=== PATIENT | female | born 1950 | race Caucasian/White ===

== ENCOUNTER 2016-08-29 10:35 | Inpatient (IN) | payer MEDICARE, OTHER ==
[2016-08-25 15:06] LABS: BASOPHILS 0.2 %; BASOPHILS ABSOLUTE 0.03 10/3/uL (0.0-0.16); EOSINOPHILS 3.1 %; EOSINOPHILS ABSOLUTE 0.45 10/3/uL (0.0-0.53); IMMATURE GRANULOCYTES 0.2 %; IMMATURE GRANULOCYTES ABSOLUTE 0.03 10/3/uL (0.0-0.11); LYMPHOCYTES 20.8 %; LYMPHOCYTES ABSOLUTE 3.06 10/3/uL (0.67-4.30); MEAN CORPUS HGB CONC 33.1 g/dL (32.0-36.0); MEAN CORPUSCULAR HEMOGLOB 30.6 pg (26.0-34.0); MEAN PLATELET VOLUME 8.4 fL (9.2-13.0); MONOCYTES 6.3 %; MONOCYTES ABSOLUTE 0.93 10/3/uL (0.21-1.20); NEUTROPHILS 69.4 %; NEUTROPHILS ABSOLUTE 10.23 10/3/uL (2.02-8.40); PLATELET COUNT 303 10/3/uL (150-400); RBC DISTRIBUTION WIDTH 14.4 % (12.0-16.0); RED CELL COUNT 3.99 10/6/uL (4.0-5.6)
[2016-08-25 15:12] LABS: HEMATOCRIT 36.9 % (36.0-48.0); HEMOGLOBIN 12.2 g/dL (12.0-16.0); MANUAL DIFF NO %; MEAN CORPUSCULAR VOLUME 92.5 fL (80-100); WHITE BLOOD CELLS 14.7 10/3/uL (4.5-10.5)
[2016-08-25 15:17] LABS: INTERNATIONAL NORMAL RATI 1.1 UNITS (-); PROTIME (NOT ORD) 13.9 SEC (12.0-14.5)
[2016-08-25 15:21] LABS: A/G RATIO 0.6 (0.7-1.9); ALBUMIN 3.2 G/DL (3.5-5.0); ALKALINE PHOSPHATASE 102 U/L (45-117); BUN (BLOOD UREA NITROGEN) 17 MG/DL (6-23); CALCIUM, SERUM 8.8 MG/DL (8.5-10.4); CHLORIDE, SERUM 101 MMOL/L (96-112); CO2 (CARBON DIOXIDE) 31 MMOL/L (24-34); CREATININE 0.91 MG/DL (0.55-1.02); GFR AFRICAN AMERICAN 77 ML/MIN (>=60); GFR NON AFRICAN AMERICAN 66 ML/MIN (>=60); GLUCOSE, SERUM 97 MG/DL (60-99); POTASSIUM, SERUM 4.8 MMOL/L (3.5-5.3); SGOT(AST) 25 U/L (5-40); SGPT(ALT) 27 U/L (5-65); SODIUM, SERUM 135 MMOL/L (135-148); TOTAL BILIRUBIN 0.5 MG/DL (0-1.2); TOTAL PROTEIN 8.2 G/DL (6.0-8.5)
--- NOTE | ~2016-08-29 | OP ---
Record Of Operation [facility] [place] [address] [place]. [address] NAME: CHER BAPTISTE : 50 STATUS : ADM IN PAT#: [id number] AGE: 65 ADM/REG DATE : 08/29/16 MR#: [id number] REPORT SERV DATE: 08/30/16 DICTATED BY: DUY COTTER JR. DATE: 08/29/16 REPORT STATUS : Draft TRANSCRIBED BY: MODDeo DATE: 08/29/16 DATE OF PROCEDURE: 08/29/2016 PREOPERATIVE DIAGNOSES: Interstitial lung disease, persistent cough, dyspnea, increased body mass index, hypothyroidism. POSTOPERATIVE DIAGNOSES: Interstitial lung disease, persistent cough, dyspnea, increased body mass index, hypothyroidism. Pathology and cultures pending. NAME OF OPERATION: Bronchoscopy, right thoracoscopy with wedge excision, right middle lobe, for diagnosis; mediastinal lymph node sampling, shauna station #9; intercostal nerve block. RESIDENT SURGEON: Dr. Luis Angel Martinez. RESERVATION CLERK: Everardo Samaniego. ANESTHESIA: General endotracheal. FINDINGS: The patient was noted to have grossly abnormal lung tissue. Right middle lobe had a segment that was visibly abnormal, transitioning to more normal lung tissue. This area was wedged out. There were other segments of very normal lung tissue. We did not do more biopsies just trying to spare her lung tissue. On the segment of the middle lobe that we removed, pathologist felt he had a good transition zone as well as adequate material to perform a diagnosis. Portion was sent for cultures. Her mediastinal lymph nodes were enlarged. A #9 lymph node was sent for pathology. Final pathology is pending. DETAILS OF OPERATION: After adequate general anesthesia, the patient was intubated. Bronchoscopy was performed noting no endobronchial lesions. A left-sided double-lumen endotracheal tube was then placed. The patient was then positioned in the left lateral decubitus position. The right chest was then prepped and draped in routine sterile fashion. A small incision was made overlying the lower intercostal space. A separate anterior trocar incision was also made. Through these two incision sites, above findings were noted. Lung tissue was explored noting the above findings. We took a section of the middle lobe because of the transition between abnormal and normal tissue. Multiple firings of THERESA stapler with tissue reinforcements were utilized. We were able to remove dissection through the inferior trocar site. Mediastinal nodes were then explored. We removed one of these inferior pulmonary ligament lymph nodes. This was also sent to pathology. Confirmation of adequate tissue was obtained. We did not remove more lung tissue given her obvious need for every bit of her lung tissue. It did not look like sarcoidosis or something simple. Adequate hemostasis was obtained. An intercostal nerve block was performed. A 20-Czech chest tube was placed. The lung was reinflated. The trocar sites were closed with running Vicryl sutures. Skin was closed with running monofilament suture. A Dermabond dressing was applied and the procedure was terminated at this point. The patient tolerated the procedure well and taken back to recovery room in stable condition. Record Of Operation [place] [id number] [facility] [place]. [address] NAME: CHER BAPTISTE : 50 STATUS : ADM IN [facility]#: [id number] AGE: 65 ADM/REG DATE : 08/29/16 MR#: [id number] REPORT SERV DATE: 08/30/16 DICTATED BY: DUY COTTER JR. DATE: 08/29/16 REPORT STATUS : Draft TRANSCRIBED BY: QUETA DATE: 08/29/16 /QUETA Duy Cotter Jr., M.D. / [id number] CC: Julio Barros Jr., NP Daniel Smith, M.D.
[~2016-08-29 10:35] MED LIST: COZAAR100 MG PO; LEVOTHYROXIN88 MCG PO; LEXAPRO10 PO; SEV VITAMINS PO; SINGULAIR1 PO; SYMBICORT 80/4.1 INH INH; [UNRECOGNIZED DRUG - OTHER] PO
[2016-08-30 05:37] LABS: BASOPHILS 0.1 %; BASOPHILS ABSOLUTE 0.01 10/3/uL (0.0-0.16); EOSINOPHILS 0.1 %; EOSINOPHILS ABSOLUTE 0.01 10/3/uL (0.0-0.53); HEMATOCRIT 33.6 % (36.0-48.0); IMMATURE GRANULOCYTES 0.2 %; IMMATURE GRANULOCYTES ABSOLUTE 0.02 10/3/uL (0.0-0.11); LYMPHOCYTES 20.6 %; LYMPHOCYTES ABSOLUTE 2.23 10/3/uL (0.67-4.30); MEAN CORPUS HGB CONC 32.7 g/dL (32.0-36.0); MEAN CORPUSCULAR HEMOGLOB 30.9 pg (26.0-34.0); MEAN CORPUSCULAR VOLUME 94.4 fL (80-100); MEAN PLATELET VOLUME 8.5 fL (9.2-13.0); MONOCYTES 7.9 %; MONOCYTES ABSOLUTE 0.85 10/3/uL (0.21-1.20); NEUTROPHILS 71.1 %; PLATELET COUNT 266 10/3/uL (150-400); RBC DISTRIBUTION WIDTH 14.6 % (12.0-16.0); RED CELL COUNT 3.56 10/6/uL (4.0-5.6); WHITE BLOOD CELLS 10.8 10/3/uL (4.5-10.5)
[2016-08-30 05:38] LABS: MANUAL DIFF NO %
[2016-08-30 05:51] LABS: CALCIUM, SERUM 8.7 MG/DL (8.5-10.4); CHLORIDE, SERUM 100 MMOL/L (96-112); CREATININE 0.67 MG/DL (0.55-1.02); GFR AFRICAN AMERICAN 107 ML/MIN (>=60); GFR NON AFRICAN AMERICAN 92 ML/MIN (>=60); POTASSIUM, SERUM 4.9 MMOL/L (3.5-5.3); SODIUM, SERUM 131 MMOL/L (135-148)
[2016-08-30 05:56] LABS: BUN (BLOOD UREA NITROGEN) 11 MG/DL (6-23); CO2 (CARBON DIOXIDE) 25 MMOL/L (24-34); GLUCOSE, SERUM 267 MG/DL (60-99)
[2016-08-30] MEDS ORDERED: PCET PO (11:13)
== END 2016-08-30 14:48 | disposition home or self-care (01) | DRG 167 ==
LOC: SDC/OF 10:35 → 5NO 17:05
PROVIDERS: Thoracic Surgery (Cardiothoracic Vascular Surgery)
PROC: 07B74ZX Excision of Thorax Lymphatic, Percutaneous Endoscopic Approach, Diagnostic (ICD-10-PCS; 2016-08-29)
PROC: 0BJ08ZZ Inspection of Tracheobronchial Tree, Via Natural or Artificial Opening Endoscopic (ICD-10-PCS; 2016-08-29)
PROC: 3E0T3BZ Introduction of Anesthetic Agent into Peripheral Nerves and Plexi, Percutaneous Approach (ICD-10-PCS; 2016-08-29)
PROC: 0BBD4ZX Excision of Right Middle Lung Lobe, Percutaneous Endoscopic Approach, Diagnostic (ICD-10-PCS; principal; 2016-08-29 11:45)
DX: J84.9 Interstitial pulmonary disease, unspecified (principal); Z68.42 Body mass index [BMI] 45.0-49.9, adult; E03.9 Hypothyroidism, unspecified; R05 Cough; E66.9 Obesity, unspecified
CPT/HCPCS: 36415; 71020; 80048; 80053; 82962; 85025; 85610; 86850; 86900; 86901; 87015; 87070; 87075; 87102; 87116; 87205; 87641; 88305; 88307; 88331; 88332; 88333; 94640; A9270-GY; J0690; J2250; J2370; J2405; J2710; J2795; J3010; J3370